=== PATIENT | female | born 1955 | race Asian ===

== ENCOUNTER 2020-06-24 21:03 | Emergency (ER) | payer BC ==
[~2020-06-24] VITALS: Ht 165.1 cm; Wt 72.6 kg
[~2020-06-24 21:03] MED LIST: ASPIR 8181 MG PO; ZESTRIL20 MG PO
[2020-06-24 21:43] LABS: BASOPHIL % 0.6 % (0-2); PLATELET COUNT 230 x10^3mcL (130-400); RED CELL DISTRIBUTION WIDTH 12.6 % (11.5-14.5)
[2020-06-24 22:01] LABS: CALCIUM 8.8 mg/dL (8.5-10.1); CARBON DIOXIDE 32.2 mmol/L (21-32); POTASSIUM SERUM 4.1 mmol/L (3.5-5.1)
[2020-06-24 22:05] LABS: ALBUMIN 3.7 g/dL (3.4-5.0); BILIRUBIN TOTAL 0.4 mg/dL (0.20-1.00); MAGNESIUM 2.1 mg/dL (1.8-2.4)
[2020-06-24 23:31] VITALS: BP 140/93
== END 2020-06-24 23:30 | disposition home or self-care (01) ==
LOC: ED 21:03
PROVIDERS: Emergency Medicine
DX: R00.2 Palpitations (principal); I10 Essential (primary) hypertension; I48.91 Unspecified atrial fibrillation
CPT/HCPCS: Q0092